=== PATIENT | female | born 1940 | race Caucasian/White ===

== ENCOUNTER 2020-08-19 13:42 | Inpatient (IN) | payer OTHER ==
[~2020-08-19] VITALS: Ht 162.6 cm; Wt 79.4 kg
[2020-08-19 13:54] VITALS: BP 136/53
[2020-08-19 14:14] LABS: BASOPHILS 0.4 % (0.0-2.0); EOSINOPHILS 3.7 % (0.0-3.0); HEMATOCRIT 40.8 % (37.0-47.0); HEMOGLOBIN 13.4 gm/dL (12.0-15.0); LYMPHOCYTES 18.6 % (24.0-44.0); MCH 29.7 pg (26.0-34.0); MONOCYTES 11.4 % (1.0-8.0); PLATELET COUNT 186 thou/uL (150-400); POLYS 65.9 % (36.0-66.0); RBC 4.53 mil/uL (4.20-5.00); WBC 7.5 thou/uL (4.0-11.0)
[2020-08-19 14:29] LABS: ANION GAP 8 mmol/L (7-16); BUN 25 mg/dL (7-18); CALCIUM 8.6 mg/dL (8.5-10.1); CHLORIDE 108 mmol/L (98-107); CO2 29 mmol/L (21-32); CREATININE 1.3 mg/dL (0.6-1.0); GLUCOSE 108 mg/dL (74-106); POTASSIUM 3.4 mmol/L (3.5-5.1); SODIUM 145 mmol/L (136-145)
[2020-08-19 14:40] LABS: ALBUMIN 3.2 g/dL (3.4-5.0); MAGNESIUM 1.9 mg/dL (1.8-2.4); SGOT 14 U/L (15-37); SGPT 30 U/L (14-59); TOTAL BILIRUBIN 0.6 mg/dL (0.2-1.0); TOTAL PROTEIN 5.7 g/dL (6.4-8.2); TROPONIN-I <0.06 ng/mL (<0.06)
--- NOTE | 2020-08-19 16:18 | EKG ---
[address] [place] [address] ELECTROCARDIOGRAM REPORT Name: YARI LOPEZ Room #: REG GABE Singh#: [id number] Admission: 08/19/20 Attend Phys: Discharge: Date of : 38 Report #: [id number] [facility] ED Test Date: 2020-08-19 Test Time: 13:44:09 Pat Name: YARI LOPEZ Department: Room: Gender: F Intelligence Intern: AZUCENA : 1940 Requested By: Pilar Harvey Order Number: [id number] MD: Dallas Eckert Measurements Intervals [place] Rate: 90 P: -54 KS: 112 QRS: -2 QRSD: 87 T: 77 QT: 343 QTc: 420 Interpretive Statements Sinus or ectopic atrial rhythm Borderline short KS interval Abnormal R-wave progression, early transition No previous ECG available for comparison Electronically Signed On 08-19-2020 16:18:43 CDT by Dallas Eckert [email or web address] <ELECTRONICALLY SIGNED> By: Dallas Eckert MD, [facility] 08/19/20 1618 1344 1344 Dallas Eckert MD, FACC /EPI
--- NOTE | 2020-08-19 17:33 | NUR ---
ULTRASOUND AT BEDSIDE
[2020-08-19] MEDS ORDERED: LOSARTAN POTASS50 MG PO (19:49)
[2020-08-19] MEDS ORDERED: ALENDRONATE SOD70 MG PO (19:49)
[2020-08-19] MEDS ORDERED: ANORO ELLIPTA1 EACH IH (19:49)
[2020-08-19] MEDS ORDERED: ESOMEPRAZOLE MA40 MG PO (19:49)
[2020-08-19] MEDS ORDERED: APAP W/CODEINE1 TA2 PO (19:49)
[2020-08-19 19:50] VITALS: BP 147/58
[2020-08-19] MEDS ORDERED: GABAPENTIN 100100 MG PO (19:50)
[2020-08-19] MEDS ORDERED: ZOCOR 20 MG TAB20 M1 PO (19:50)
[2020-08-19 20:01] LABS: CHOLESTEROL 141 mg/dL (<200); HDL CHOLESTEROL 72 mg/dL (>40); LDL CHOLESTEROL 38 mg/dL (<100); TRIGLYCERIDE 159 mg/dL (<150); VLDL 32 mg/dL (<40)
[2020-08-19 20:09] VITALS: BP 180/64
[2020-08-19 21:00] VITALS: BP 151/60
[2020-08-20 04:32] VITALS: BP 147/87
[2020-08-20 05:36] LABS: CALCIUM 8.4 mg/dL (8.5-10.1); CREATININE 1.2 mg/dL (0.6-1.0); POTASSIUM 4.3 mmol/L (3.5-5.1)
--- NOTE | 2020-08-20 06:52 | NUR ---
PT ARRIVED TO THE UNIT VIA ED. ALERT AND ORIENT TIMES FOUR. DELVALLE. UP WITH STEADY GAIT WITH SBA. NPO AT MN. SR PER MONITOR.. DENIES CP, SOB AND N/V. WILL CONTINUE TO MONITOR.
[2020-08-20 08:04] VITALS: BP 176/70
--- NOTE | 2020-08-20 10:35 | NUR ---
EMELYN RN AND THIS RN TRINED PLACING IV IN PT, SUCCESS AFTER MULTIPLE TIMES. PAGED IV TEAM 3X, NO ANSWER YET. MADE HOUSE SUP AWARE, WAITING FOR A CALL BACK. PT NEEDS PERIPHERAL IV ACCESS FOR STRESS TESTG
--- NOTE | 2020-08-20 12:28 | NUR ---
PT TAKEN DOWN FOR STRESS TEST.
--- NOTE | 2020-08-20 12:29 | 2DMMODE ---
[facility] [place] [address] 2 D/M-MODE ECHOCARDIOGRAM Name: YARI LOPEZ Room #: 364-P ADM IN M.R.#: [id number] Admission: 08/19/20 Attend Phys: Salvador Hwang MD Discharge: Date of : 38 Report #: [id number] THIS REPORT FOR: cc: Usman Henderson David J. DO Santiago, Patrick MD [facility] ~ APPROVED REPORT Study performed: 08/20/2020 11:46:14 EXAM: Comprehensive 2D, Doppler, and color-flow Echocardiogram Patient Location: Bedside Room #: 364 Status: routine BSA: 1.85 HR: 71 bpm BP: 176/70 mmHg Rhythm: NSR Other Information Study Quality: Adequate Indications Chest pain. Hx: HTN, HLP, chemo. 2D Dimensions RVDd: 33.36 mm IVSd: 12.90 (7-11mm) LVOT Diam: 20.07 (18-24mm) LVDd: 38.56 mm PWd: 9.92 (7-11mm) LVDs: 25.02 (25-40mm) Left Atrium: 38.32 (27-40mm) Aortic Root: 27.47 mm Volumes Left Atrial Volume (Systole) Single Plane 4CH: 36.31 mL Single Plane 2CH: 48.91 mL LA ESV Index: 24.00 mL/m2 Aortic Valve AoV Peak Blaise.: 2.47 m/s AO Peak Gr.: 24.40 mmHg LVOT Max P.83 mmHg AO Mean Gr.: 11.90 mmHg [facility] [address] [place] [address] 2 D/M-MODE ECHOCARDIOGRAM Name: JOHNYARI Room #: 364-P [facility] IN ..#: [id number] Admission: 08/19/20 Attend Phys: Salvdaor Hwang MD Discharge: Date of : 38 Report #: [id number] V2 Mean: 1.64 m/s LVOT Max V: 1.31 m/s AO V2 VTI: 46.63 cm ANEL Vmax: 1.67 cm2 Mitral Valve E/A Ratio: 0.8 MV Decel. Time: 216.03 ms MV E Max Blaise.: 0.83 m/s MV A Blaise.: 1.04 m/s MV PHT: 62.65 ms IVRT: 72.66 ms Pulmonary Vein P Vein S: 0.60 m/s P Vein D: 0.43 m/s P Vein S/D Ratio: 1.40 Tricuspid Valve TR Peak Blaise.: 2.73 m/s RAP Estimate: 5.00 mmHg TR Peak Gr.: 30.00 mmHg PA Pressure: 35.00 mmHg Left Ventricle The left ventricle is normal size. There is normal LV segmental wall motion. Mild basal septal hypertrophy is present. Left ventricular systolic function is normal. LVEF is 65%. Mild diastolic dysfunction is present (impaired relaxation pattern). Right Ventricle The right ventricle is normal size. The right ventricular systolic function is normal. Atria The left atrium size is normal. The right atrium size is normal. Aortic Valve Aortic valve is mildly calcified. Trace aortic regurgitation. There is mild valvular aortic stenosis. Calculated aortic valve area is 1.7 cm2 with maximum pressure gradient of 24 mmHg and mean pressure gradient of 12 mmHg. Mitral Valve The mitral valve is normal in structure. Mild mitral regurgitation. [facility] [address] [place] [address] 2 D/M-MODE ECHOCARDIOGRAM Name: YARI LOPEZ Room #: 364-P ADM IN M.R.#: [id number] Admission: 08/19/20 Attend Phys: Salvador Hwang MD Discharge: Date of : 38 Report #: [id number] Tricuspid Valve The tricuspid valve is normal in structure. Mild to moderate tricuspid regurgitation. Estimated PAP is 35mmHg. Pulmonic Valve Pulmonic valve is not well visualized. Great Vessels The aortic root is normal in size. Ascending aorta is not well visualized. IVC is normal in size and collapses >50% with inspiration. Pericardium There is no pericardial effusion. <Conclusion> Normal left ventricular size with mild basal hypertrophy Ejection fraction 60-65% Grade 1 diastolic dysfunction No segmental wall motion abnormality Normal right ventricular size/function Normal atrial size Color-flow Doppler studies performed of the aortic/mitral/tricuspid/pulmonary valve Mild aortic valve calcification Mild aortic valve stenosis aortic valve area estimated 1.7 cm and a mean gradient of 12 mmHg Mild mitral annular calcification Mild mitral valve insufficiency Mild tricuspid valve insufficiency Pulmonary systolic pressure estimated at 35 mmHg Normal aortic root size No pericardial effusion <ELECTRONICALLY SIGNED> By: Reagan Braun MD, FACC 08/20/20 1229 1229 1229 Reagan Braun MD, FACC /INF
[2020-08-20] MEDS ORDERED: METOPROLOL SUCC25 M1 PO (13:48)
[2020-08-20] MEDS ORDERED: AMLODIPINE BESY10 MG PO (13:51)
[2020-08-20 15:28] VITALS: BP 176/70
[2020-08-20 15:41] VITALS: BP 161/77
--- NOTE | 2020-08-20 15:55 | NUR ---
IV D/C, DISCHARGE INSTRUCTION AND NEW MED INFO GIVEN TO PT. PT DENIES ANY QUESTIONS. ALL BELONGINGS WITH PT. PT TAKEN DOWN VIA WHEELCHAIR, DAUGHTRER WITH PT
== END 2020-08-20 15:48 | disposition home or self-care (01) | DRG 445 ==
LOC: ER 13:42 → 3W 19:16 → EROBS 19:16 → 3W 20:36
PROVIDERS: Emergency Medicine; Nurse Practitioner Family; ADMIT Hospitalist; ATTEND Hospitalist
DX: K80.80 Other cholelithiasis without obstruction (principal); N17.9 Acute kidney failure, unspecified; I10 Essential (primary) hypertension; K80.50 Calculus of bile duct without cholangitis or cholecystitis without obstruction; E78.5 Hyperlipidemia, unspecified; I35.0 Nonrheumatic aortic (valve) stenosis; M81.0 Age-related osteoporosis without current pathological fracture; K21.9 Gastro-esophageal reflux disease without esophagitis; M16.0 Bilateral primary osteoarthritis of hip; Z85.038 Personal history of other malignant neoplasm of large intestine; Z92.21 Personal history of antineoplastic chemotherapy; Z92.3 Personal history of irradiation; Z79.82 Long term (current) use of aspirin; Z88.6 Allergy status to analgesic agent; Z88.2 Allergy status to sulfonamides; Z79.899 Other long term (current) drug therapy; M94.0 Chondrocostal junction syndrome [Tietze]
CPT/HCPCS: 10879